=== PATIENT | female | born 1990 | race Caucasian/White ===

== ENCOUNTER 2021-04-19 22:21 | Emergency (ER) | payer SELFPAY ==
[~2021-04-19] VITALS: Ht 172.7 cm; Wt 66.0 kg
[2021-04-19] MEDS ORDERED: TETANUS, DIPHTHERIA, PERTUSSIS VAC/PF 0.5ML (>10YR OLD) IM ONE (23:00)
[2021-04-19] MEDS ORDERED: LIDOCAINE HCL 1% 20ML VIAL (Pyxis) INJ INFIL ONE (23:00)
[2021-04-20] MEDS ORDERED: HYDROCODONE/ACETAMINOPHEN 5/325MG TABLET PO ONE (01:15)
[2021-04-20 01:17] VITALS: BP 110/72
== END 2021-04-20 04:43 | disposition left against medical advice (07) ==
LOC: ER 22:21
DX: S01.312A Laceration without foreign body of left ear, initial encounter (principal); M54.2 Cervicalgia; V43.62XA Car passenger injured in collision with other type car in traffic accident, initial encounter; Y93.89 Activity, other specified; Y92.410 Unspecified street and highway as the place of occurrence of the external cause
CPT/HCPCS: 12013; 70450; 71045; 72125; 81025; 90471; 90715; 99284; A4217; J3490